=== PATIENT | male | born 1990 | race Caucasian/White ===

== ENCOUNTER 2019-11-02 10:55 | Emergency (ER) | payer OTHER ==
[~2019-11-02] VITALS: Ht 175.3 cm; Wt 77.1 kg
[2019-11-02 11:04] VITALS: BP 143/70
[2019-11-02] MEDS ORDERED: QUET100T PO (11:07)
--- NOTE | 2019-11-02 11:20 | NUR ---
PATIENT A/OX4, BREATHING EVEN AND UNLABORED, NO SOB NOTED, NEEDS ATTENDED, AMBULATORY WITH STEADY GAIT. Patient discharged to home in stable condition. Written and verbal after care instructions given. Patient verbalizes understanding of instruction.
== END 2019-11-02 11:22 | disposition home or self-care (01) ==
LOC: ER 10:57
DX: S06.0X0A Concussion without loss of consciousness, initial encounter (principal); F32.9 Major depressive disorder, single episode, unspecified; Z79.899 Other long term (current) drug therapy; W18.39XA Other fall on same level, initial encounter; Y93.67 Activity, basketball; Y92.310 Basketball court as the place of occurrence of the external cause; Y99.8 Other external cause status

== ENCOUNTER 2023-07-22 17:58 | Emergency (ER) | payer OTHER ==
[~2023-07-22] VITALS: Ht 175.3 cm; Wt 74.8 kg
[~2023-07-22 17:58] MED LIST: QUET100T PO
[2023-07-22 18:14] VITALS: BP 154/100; TEMP 98.5; O2SAT 100
== END 2023-07-22 19:30 | disposition left against medical advice (07) ==
LOC: ER 18:02
DX: R45.851 Suicidal ideations (principal); R45.850 Homicidal ideations; F32.A Depression, unspecified